=== PATIENT | male | born 1960 | race African-American/Black ===

== ENCOUNTER 2018-09-16 20:36 | Emergency (ER) | payer OTHER ==
[~2018-09-16] VITALS: Ht 162.6 cm; Wt 55.3 kg
[~2018-09-16 20:36] MED LIST: ACET650S PEG; AMLO10TA8 PEG; AMOX400S PEG; ASPI-630 PEG; ATORVASTATIN CA80 MG PEG; BACL10TA PEG; CARV12.5 PEG; FAMO20TA5 PEG; FLUO10CA7 PEG; FOLI1TAB16 PEG; LEVE100S8 PEG; LEVE500T56 PEG; LIDOCAINE 5% TOP; LISI-338 PEG; MELA3TAB2 PEG; METH113C6 TP; RIVA20TA2 PO
[2018-09-16] MEDS ORDERED: levETIRAcetam 1,000 MG in IV DEXTROSE 5% 100ML 100 ML IV ONE (20:45)
[2018-09-16 21:02] LABS: BASO # 0.1 x10^3/uL (0.0-0.2); BASO % 1 % (0-3); EOS # 0.3 x10^3/uL (0.0-0.7); EOS % 3 % (0-3); HEMATOCRIT 35.6 % (39.0-53.0); HEMOGLOBIN 11.1 g/dL (13.0-17.5); LYMPH % 29 % (24-48); MEAN CORPUSCULAR HEMOGLOBIN 25 pg (25-35); MEAN CORPUSCULAR HGB CONC 31 g/dL (31-37); MEAN CORPUSCULAR VOLUME 81 fL (79-100); MONO # 0.6 x10^3/uL (0.0-1.1); MONO % 6 % (0-9); NEUT # 6.6 x10^3uL (1.8-7.7); NEUT % 62 % (31-73); PLATELET COUNT 257 x10^3/uL (140-400); RED CELL DISTRIBUTION WIDTH 15.2 % (11.5-14.5); WHITE BLOOD COUNT 10.5 x10^3/uL (4.0-11.0)
[2018-09-16 21:12] LABS: CALCIUM 9.5 mg/dL (8.5-10.1); CREATININE 1.5 mg/dL (0.7-1.3); GFR 58.4
[2018-09-16 21:18] LABS: ALBUMIN/GLOBULIN RATIO 0.9 (1.0-1.7); TOTAL BILIRUBIN 0.2 mg/dL (0.2-1.0); TOTAL PROTEIN 8.7 g/dL (6.4-8.2)
--- NOTE | 2018-09-16 21:56 | RAD ---
CT scan of the head without contrast 09/16/2018 Clinical History: Altered mental status. Seizures. Technique: Unenhanced, contiguous, 5 mm axial sections were obtained through the head. One or more of the following individualized dose reduction techniques were utilized for this study: 1. Automated exposure control. 2. Adjustment of the mA and/or kV according to patient size. 3. Use of iterative reconstruction technique. Findings: Comparison study is dated 06/29/2018 There is generalized parenchymal atrophy. Areas of decreased attenuation are seen within the periventricular and subcortical white matter of both cerebral hemispheres consistent with areas of small vessel ischemic disease. A large area of encephalomalacia is again seen involving the left temporal and frontoparietal lobes. No acute parenchymal abnormality is seen. No extra-axial fluid collection is noted. No skull fracture is seen. Impression: No acute intracranial abnormality is seen. Electronically signed by: Wali Pereira MD (09/16/2018 9:53 PM) [facility]
[2018-09-16] MEDS ORDERED: IV NORMAL SALINE 1000ML BAG 1,000 ML IV ONE (22:30)
[2018-09-16 23:19] LABS: HCO3 ABG 24 mmol/L (21-28); PCO2 ABG 38 mmHg (35-46); PO2 ABG 93 mmHg (75-108); SAT O2 ABG 97 % (92-99)
[2018-09-16 23:20] LABS: FIO2 ABG 21
[2018-09-17 01:18] VITALS: BP 141/70
--- NOTE | 2018-09-17 14:24 | EKG ---
[facility] [address] [place] [address] Test Date: 2018-09-16 Test Time: 20:41:39 Pat Name: JUANY SORIA Department: Room: Gender: M Er Physician: : [id number] Requested By: CHRISTIANE CASTANO Order Number: [id number] Reading MD: Measurements Intervals [place] Rate: P: WA: QRS: QRSD: T: QT: QTc: Interpretive Statements
--- NOTE | 2018-09-20 21:27 | PHYS DOC ---
Past Medical History Past Medical History: CVA, Depression, DVT, GERD, High Cholesterol, Hypertension, Other Additional Past Medical Histor: HEMIPLEGIA AND HEMIPARESIS LEFT SIDED, BACK MUSCLE SPASM Past Surgical History: Other Additional Past Surgical Histo: G TUBE Alcohol Use: None Drug Use: None Adult General Chief Complaint Chief Complaint: SEIZURE HPI HPI Patient is a 58 year old long-term patient with history of CVA, seizure disorder, left-sided hemiplegia, DVT currently on Xarelto who presents with seizure episode at long-term. Seizure brief, self-limited, resolved prior to ED arrival. Patient postictal, history limited due to patient's presentation.[] Review of Systems Review of Systems Review symptoms limited due to decreased LOC. All other review symptoms are negative] All other systems were reviewed and found to be within normal limits, except as documented in this note. Current Medications Current Medications Current Medications Medications (Trade) Dose Ordered Sig/Latasha Start Time Stop Time Status Last Admin Dose Admin Levetiracetam 1000 mg/Dextrose 110 ml @ 440 mls/hr 1X ONCE 09/16/18 20:45 09/16/18 20:59 DC 09/16/18 21:11 440 MLS/HR Sodium Chloride 1,000 ml @ 1,000 mls/hr 1X ONCE 09/16/18 22:30 09/16/18 23:29 DC 09/16/18 22:48 1,000 MLS/HR Allergies Allergies Allergies Coded Allergies Type Severity Reaction Last Updated Verified I S O L A T I O N *CONTACT* Allergy Unknown 07/01/18 Yes No Known Medication Allergies Allergy Unknown 07/01/18 Yes Physical Exam Physical Exam Constitutional: Well developed, well nourished. [] HENT: Normocephalic, atraumatic, bilateral external ears normal, oropharynx moist, no oral exudates, nose normal. [] Eyes: PERRLA, EOMI, conjunctiva normal, no discharge. [] Neck: Normal range of motion, no tenderness. [] Cardiovascular:Heart rate regular rhythm, no murmur. [] Lungs & Thorax: Bilateral breath sounds clear to auscultation. [] Abdomen: Bowel sounds normal, soft, no tenderness. [] Skin: Warm, dry. [] Back: No tenderness, no CVA tenderness. [] Extremities: No tenderness, no cyanosis, no clubbing, ROM intact, no edema. [] Neurologic:Decreased LOC, Left sided hemiparesis[] Psychologic: Affect normal, judgement normal, mood normal. [] Current Patient Data Vital Signs Vital Signs Date Time Temp Pulse Resp B/P (MAP) Pulse Ox O2 Delivery O2 Flow Rate FiO2 09/17/18 01:18 50 98 09/16/18 20:45 97.8 16 133/79 (97) Room Air 97.8 Lab Values Laboratory Tests Test 09/16/18 20:45 09/16/18 23:00 09/17/18 00:20 White Blood Count 10.5 x10^3/uL (4.0-11.0) Red Blood Count 4.40 x10^6/uL (4.30-5.70) Hemoglobin 11.1 g/dL (13.0-17.5) L Hematocrit 35.6 % (39.0-53.0) L Mean Corpuscular Volume 81 fL (79-100) Mean Corpuscular Hemoglobin 25 pg (25-35) Mean Corpuscular Hemoglobin Concent 31 g/dL (31-37) Red Cell Distribution Width 15.2 % (11.5-14.5) H Platelet Count 257 x10^3/uL (140-400) Neutrophils (%) (Auto) 62 % (31-73) Lymphocytes (%) (Auto) 29 % (24-48) Monocytes (%) (Auto) 6 % (0-9) Eosinophils (%) (Auto) 3 % (0-3) Basophils (%) (Auto) 1 % (0-3) Neutrophils # (Auto) 6.6 x10^3uL (1.8-7.7) Lymphocytes # (Auto) 3.0 x10^3/uL (1.0-4.8) Monocytes # (Auto) 0.6 x10^3/uL (0.0-1.1) Eosinophils # (Auto) 0.3 x10^3/uL (0.0-0.7) Basophils # (Auto) 0.1 x10^3/uL (0.0-0.2) Sodium Level 143 mmol/L (136-145) Potassium Level 4.0 mmol/L (3.5-5.1) Chloride Level 103 mmol/L (98-107) Carbon Dioxide Level 24 mmol/L (21-32) Anion Gap 16 (6-14) H Blood Urea Nitrogen 24 mg/dL (8-26) Creatinine 1.5 mg/dL (0.7-1.3) H Estimated GFR (Cockcroft-Gault) 58.4 BUN/Creatinine Ratio 16 (6-20) Glucose Level 118 mg/dL (70-99) H Lactic Acid Level 7.3 mmol/L (0.4-2.0) *H 1.1 mmol/L (0.4-2.0) Calcium Level 9.5 mg/dL (8.5-10.1) Total Bilirubin 0.2 mg/dL (0.2-1.0) Aspartate Amino Transferase (AST) 24 U/L (15-37) Alanine Aminotransferase (ALT) 39 U/L (16-63) Alkaline Phosphatase 109 U/L (46-116) Troponin I Quantitative 0.019 ng/mL (0.000-0.055) Total Protein 8.7 g/dL (6.4-8.2) H Albumin 4.0 g/dL (3.4-5.0) Albumin/Globulin Ratio 0.9 (1.0-1.7) L O2 Saturation 97 % (92-99) Arterial Blood pH 7.42 (7.35-7.45) Arterial Blood pCO2 at Patient Temp 38 mmHg (35-46) Arterial Blood pO2 at Patient Temp 93 mmHg (75-108) Arterial Blood HCO3 24 mmol/L (21-28) FiO2 21 Laboratory Tests 09/16/18 20:45 Laboratory Tests 09/16/18 20:45 EKG EKG [] Radiology/Procedures Radiology/Procedures [CT head: NAD per radiology report.] Course & Med Decision Making Course & Med Decision Making Pertinent Labs and Imaging studies reviewed. (See chart for details) [] Dragon Disclaimer Dragon Disclaimer This electronic medical record was generated, in whole or in part, using a voice recognition dictation system. Departure Departure Impression: Primary Impression: Breakthrough seizure Disposition: 01 HOME, SELF-CARE Condition: GOOD Patient Instructions: Seizure, Adult, [id number] Additional Instructions: Resume current medications. Follow up with long-term attending in the next 2 days. CHRISTIANE CASTANO DO Sep 20, 2018 21:27
== END 2018-09-17 02:31 | disposition home or self-care (01) ==
LOC: ER 20:36
DX: R56.9 Unspecified convulsions (principal); I69.354 Hemiplegia and hemiparesis following cerebral infarction affecting left non-dominant side; I10 Essential (primary) hypertension; K21.9 Gastro-esophageal reflux disease without esophagitis; E78.00 Pure hypercholesterolemia, unspecified; Z86.718 Personal history of other venous thrombosis and embolism; Z91.041 Radiographic dye allergy status
CPT/HCPCS: 36415; 36600; 70450; 80053; 82805; 83605; 84484; 85025; 93005; 96365; 99284; J1953; J7030

== ENCOUNTER → 2018-11-13 | Day surgery (SDC) | payer OTHER ==
[~2018-11-13] MED LIST changes: +IV RINGERS,LACTATED 1000ML 1,000 ML IV SCH; +LIDOCAINE 1% PF 2 ML VIAL. ID PRN; +LIDOCAINE 2% PF 5 ML VIAL. ONE; +MIDAZOLAM HCL/PF 2 MG/2 ML VIAL. IV PRN; +PROPOFOL 20 ML IV ONE; +fentaNYL PF VIAL 100 MCG/2 ML VIAL IV PRN
[2018-11-13 14:16] VITALS: BP 165/77
--- NOTE | 2018-11-14 03:45 | CONS ---
DATE OF CONSULTATION: 11/13/2018 REASON FOR CONSULTATION: Oropharyngeal dysphagia, dysfunctional G-tube. HISTORY OF PRESENT ILLNESS: A 58-year-old male with past medical history significant for hypertension, status post intracranial bleed, GERD, depression, hemiparesis, seen for dysfunctional G-tube. The patient gives minimal additional history, but needs to have the G-tube replaced today. He otherwise gives no additional history. PAST MEDICAL HISTORY: GERD, status post CVA, seizures, depression. ALLERGIES: None. MEDICATIONS: Include atorvastatin, baclofen, clonidine, Pepcid, Keppra, lisinopril, Muscle Rub cream. SOCIAL HISTORY: Lives in [facility]. He does not drink or smoke. FAMILY HISTORY: Noncontributory. REVIEW OF SYSTEMS: Per records. PHYSICAL EXAMINATION: GENERAL: A thin, male. VITAL SIGNS: Temperature is 98.7, pulse 51, respiratory rate 18. HEENT: Normocephalic, atraumatic. Pupils and extraocular muscles are not tested. Sclerae anicteric. NECK: Supple. LUNGS: Clear. CARDIOVASCULAR: Reveals S1, S2 without S3, S4 or appreciable murmur. ABDOMEN: Reveals soft abdomen with a G-tube in left upper quadrant. The left hemiparesis is noted consistent with previous subarachnoid bleed. IMPRESSION: Oropharyngeal dysphagia with dysfunctional G-tube. We will recommend EGD with PEG replacement. Risks and benefits have been previously discussed including the risk of hemorrhage and perforation who is willing to proceed at this time. AIRAM NASCIMENTO MD DR: ALVIN/lizette JOB#: [id number] / [id number]
== END | disposition home or self-care (01) ==
LOC: SURG 12:05
PROVIDERS: ATTEND Internal Medicine Gastroenterology
DX: K94.23 Gastrostomy malfunction (principal); K29.50 Unspecified chronic gastritis without bleeding; I10 Essential (primary) hypertension; F32.9 Major depressive disorder, single episode, unspecified; E78.5 Hyperlipidemia, unspecified; I25.10 Atherosclerotic heart disease of native coronary artery without angina pectoris; K21.9 Gastro-esophageal reflux disease without esophagitis; Z86.718 Personal history of other venous thrombosis and embolism; Z79.899 Other long term (current) drug therapy; Z86.73 Personal history of transient ischemic attack (TIA), and cerebral infarction without residual deficits; G81.90 Hemiplegia, unspecified affecting unspecified side; Z86.14 Personal history of Methicillin resistant Staphylococcus aureus infection; Y83.8 Other surgical procedures as the cause of abnormal reaction of the patient, or of later complication, without mention of misadventure at the time of the procedure; Z98.890 Other specified postprocedural states; Z88.8 Allergy status to other drugs, medicaments and biological substances
CPT/HCPCS: 43246; J2001; J2704